=== PATIENT | female | born 1945 | race Caucasian/White ===

== ENCOUNTER 2020-09-21 13:18 | Outpatient (CLI) | payer MEDICARE, BC | END 2020-09-21 23:59 | disposition home or self-care (01) | LOC: CARD DIAG 13:18 | PROVIDERS: ATTEND Internal Medicine Rheumatology | DX: I08.8 Other rheumatic multiple valve diseases (principal) | CPT/HCPCS: 93306 ==

== ENCOUNTER 2020-09-21 13:32 | Outpatient (CLI) | payer MEDICARE, BC ==
[~2020-09-21 13:32] MED LIST: iohexol 350 MG/ML 50ML vial IV ONE; iohexol 350MG/ML 100ml bottle IV ONE
== END 2020-09-21 23:59 | disposition home or self-care (01) ==
LOC: 64 CT 13:32
PROVIDERS: ATTEND Student in an Organized Health Care Education/Training Program
DX: I71.2 Thoracic aortic aneurysm, without rupture (principal); Z90.49 Acquired absence of other specified parts of digestive tract; Z90.710 Acquired absence of both cervix and uterus
CPT/HCPCS: 71275; 74174; Q9967

== ENCOUNTER 2021-08-18 06:35 | Emergency (ER) | payer MEDICARE ==
[~2021-08-18] VITALS: Ht 165.1 cm; Wt 65.9 kg
[2021-08-18] MEDS ORDERED: normal saline 1000ml 1,000 ML IVB ONE (07:10)
[2021-08-18] MEDS ORDERED: ondansetron/PF 4mg/2ml inj IV ONE (07:10)
[2021-08-18] MEDS ORDERED: normal saline 1000ML IV soln IVB ONE (07:20)
[2021-08-18 07:28] LABS: APTT 24 SECONDS (22-32); BASOPHILS % (AUTO) 0.2 % (0-1); EOSINOPHILS % (AUTO) 0.1 % (0-6); HEMATOCRIT 36.7 % (35.0-45.0); HEMOGLOBIN 12.3 g/dl (12.0-16.0); MEAN CORPUSCULAR HEMOGLOBIN 32.1 PG (27.0-31.0); MEAN CORPUSCULAR HGB CONC 33.7 g/dL (33.0-36.5); MEAN CORPUSCULAR VOLUME 95.3 FL (78-98); MEAN PLATELET VOLUME 8.4 FL (7.4-10.4); MONOCYTES # (AUTO) 1.3 X10'3 (0-0.9); MONOCYTES % (AUTO) 7.8 % (2-12); NEUTROPHILS # (AUTO) 13.9 X10'3 (1.8-7.7); NEUTROPHILS % (AUTO) 85.9 % (42-75); PLATELET COUNT 238 X10'3 (140-440); RED BLOOD COUNT 3.85 X10'6 (4.20-5.60); RED CELL DISTRIBUTION WIDTH 13.6 % (11.5-14.5); WHITE BLOOD COUNT 16.1 X10'3 (4.5-11.0)
[2021-08-18 07:38] LABS: ALANINE AMINOTRANSFERASE 15 U/L (12-78); ALBUMIN 3.6 G/DL (3.4-5.0); ALBUMIN/GLOBULIN RATIO 1.2 (1.1-1.5); ALKALINE PHOSPHATASE 54 IU/L (46-116); ANION GAP 10 (8-16); ASPARTATE AMINO TRANSFERASE 16 U/L (10-37); BILIRUBIN,TOTAL 0.8 MG/DL (0.1-1.0); BLOOD UREA NITROGEN 19 MG/DL (7-18); BUN/CREATININE RATIO 17.4 (6.6-38.0); CALCIUM 8.6 MG/DL (8.5-10.1); CHLORIDE 108 MMOL/L (99-107); CREATININE 1.09 MG/DL (0.40-0.90); GLUCOSE 177 MG/DL (70-104); POTASSIUM 3.6 MMOL/L (3.5-5.1); SODIUM 144 MMOL/L (135-145); TOTAL CARBON DIOXIDE 25.9 MMOL/L (24-32); TOTAL PROTEIN 6.5 G/DL (6.4-8.2); eGFR 49 ML/MIN
[2021-08-18 07:46] LABS: LIPASE 178 U/L (73-393); MAGNESIUM 1.8 MG/DL (1.5-2.4)
[2021-08-18] MEDS ORDERED: LORazepam 2 mg/ml vial IV ONE (07:50)
[2021-08-18 08:00] VITALS: BP 111/66
[2021-08-18] MEDS ORDERED: sodium bicarbonate (8.4%) 1 mEq/ml syringe ONE (08:00)
[2021-08-18] MEDS ORDERED: epiNEPHrine 0.1mg/ml 10ml syringe ONE (08:00)
[2021-08-18] MEDS ORDERED: iohexol 350MG/ML 100ml bottle IV ONE (08:17)
--- NOTE | 2021-08-18 08:23 | NUR ---
PT'S CALLED AT HOME, NOTIFIED THAT HIS IS NOT DOING WELL AND WAS REQUESTED TO RETURN TO THE HOSPITAL. DR PARKS NOTIFIED OF FAMILY CONTACT
--- NOTE | 2021-08-18 08:25 | NUR ---
heard primary nurse fanny asking for md to room 6 at 0802 ,went to see what does rn need,pt found unresponsive with agonal breathing,paged rt stat and asked for estra help ,dr aburto arrived to bedside at 08 ,fanny primary rn along with 3 other nurses{hector,the repairer typewriter and hieu leach } at bedside with hat maker david . no palpable pulse at 0805. At [address] aburto order 1/2 dose of atropine admin by fanny rn through lft ac iv followed by flush,BMV started by rt at bedside. cpr started at 08 by david hat maker . at 0807 1 dose of 0.1 mg epi admin by corol through lft ac iv followed by flush . pulse check at 0811 no pulse,pericardial fluid noted by dr aburto while checking the pulse with ultrasound resume cpr .hr on monitor 66,spo2 83,bp 63/27. 0815 dr aburto did the ultrasound and free blood noted . 0816 pulse check - no pulse. 0816 et 8.0 22 at gum ,tube placed ,color change,equal rise and fall of chest ,b/l breath sound .hr 100 on monitor,[id number],bp 116/34,no pulse . 0818no pulse cpr resume. 0819 dr aburto did pulse check with ultrasound and has hear activity reume cpr. started io started by repairer typewriter ,while kiko leach started rapid iv fluid infusion . handover to yumiko leach as repairer typewriter started helping with infusin and iv access.
--- NOTE | 2021-08-18 08:27 | NUR ---
CORAL ATTEMPTED IV, NO SUCCESS. CPR CONTINUING.
--- NOTE | 2021-08-18 08:31 | NUR ---
EPI 0.1MG GIVEN BY LES CARDOZA.
--- NOTE | 2021-08-18 08:34 | NUR ---
IO PLACED BY LES JUNE. LEFT LOWER EXT.
--- NOTE | 2021-08-18 08:35 | NUR ---
NS BOLUS STARTED IO BY LES DELGADO
--- NOTE | 2021-08-18 08:35 | NUR ---
PULSE CHECKED, NO PULSE CPR CONTINUES
--- NOTE | 2021-08-18 08:37 | NUR ---
EPI 0.1MG IV GIVEN BY LES JUNE.
--- NOTE | 2021-08-18 08:39 | NUR ---
AT BEDSIDE, DR. PARKS TALKING WITH HIM
--- NOTE | 2021-08-18 08:39 | NUR ---
PULSE CHECK, NO PULSE, CPR RESUMED.
--- NOTE | 2021-08-18 08:40 | NUR ---
TOD: [address] PARKS
== END 2021-08-18 10:31 ==
LOC: ER 06:36
DX: I46.9 Cardiac arrest, cause unspecified (principal); I31.2 Hemopericardium, not elsewhere classified; I71.3 Abdominal aortic aneurysm, ruptured; I10 Essential (primary) hypertension; E03.9 Hypothyroidism, unspecified; Z88.1 Allergy status to other antibiotic agents; Z91.012 Allergy to eggs
CPT/HCPCS: 31500; 33016; 36415; 71045; 80053; 83690; 83735; 83880; 84484; 85025; 85610; 85730; 86885; 86900; 86901; 92950; 93005; 96361; 96374; 99291; J0171; J2405; J3490; J7030; Q9967; 94760